=== PATIENT | male | born 1935 | race Caucasian/White ===

== ENCOUNTER 2024-01-12 17:52 | Outpatient (REF) | payer MEDICARE, SELFPAY ==
[2024-01-12 13:34] LABS: Abs Immature Grans 0.01 10^3/uL (0.0-0.06); Absolute Basophil Count 0.03 10^3/uL (0.0-0.2); Absolute Eosinophil Count 0.38 10^3/uL (0.0-0.7); Absolute Lymphocyte Count 1.04 10^3/uL (1.2-3.4); Absolute Monocyte Count 0.48 10^3/uL (0.1-0.8); Absolute Neutrophil Count 4.29 10^3/uL (1.2-6.7); Basophils % 0.5 %; Eosinophils % 6.1 %; HCT 31.3 % (40.0-50.0); HGB 9.6 g/dL (13.5-17.5); Immature Grans % 0.2 %; Lymphocytes % 16.7 %; MCHC 30.7 % (32.0-36.0); MCV 101 fL (80-95); MPV 12.6 fL (8.0-11.0); Monocytes % 7.7 %; Neutrophils % 68.8 %; Platelet Count 296 10^3/uL (130-400); RDW 14.4 % (11.8-14.1); RDW-SD 52.9 fL; WBC 6.23 10^3/uL (4.4-10.8)
[2024-01-12 13:40] LABS: Anion Gap 11.2 mmol/L (3-11); BUN 51 mg/dL (7-18); CO2 22.8 mmol/L (21.0-32.0); CREATININE 2.3 mg/dL (0.70-1.30); Chloride 116 mmol/L (98-107); Estimated GFR 26.64 (mL/min/1.73m2); Glucose 151 mg/dL (74-106); Potassium 3.8 mmol/L (3.5-5.1); Sodium 150 mmol/L (136-145)
== END 2024-01-12 17:53 | disposition home or self-care (01) ==
LOC: LBN 17:52
PROVIDERS: PCP Internal Medicine; Visit Provider Family Medicine
DX: N17.9 Acute kidney failure, unspecified (principal); I10 Essential (primary) hypertension; I48.0 Paroxysmal atrial fibrillation
CPT/HCPCS: 80048; 85025